=== PATIENT | male | born 1985 | race American Indian/Alaskan Native ===

== ENCOUNTER 2021-03-30 17:37 | Emergency (ER) | payer OTHER ==
[~2021-03-30] VITALS: Ht 185.4 cm; Wt 100.2 kg
== END 2021-03-30 20:17 | disposition home or self-care (01) ==
LOC: ER 17:37
DX: M54.5 Low back pain (principal); M25.552 Pain in left hip; W19.XXXA Unspecified fall, initial encounter; Y92.59 Other trade areas as the place of occurrence of the external cause; Y99.9 Unspecified external cause status